=== PATIENT | male | born 1955 | race Caucasian/White ===

== ENCOUNTER 2017-03-06 00:01 | Emergency (ER) | payer SELFPAY | END 2017-03-06 01:15 | disposition home or self-care (01) | LOC: BURERS 00:01 | DX: M70.62 Trochanteric bursitis, left hip (principal); M70.61 Trochanteric bursitis, right hip | CPT/HCPCS: 99283 ==

== ENCOUNTER 2022-02-03 18:22 | Emergency (ER) | payer MEDICARE, SELFPAY ==
[2022-02-03] MEDS ORDERED: Boostrix 0.5 ML (Tdap) VIAL ONE (18:47)
[2022-02-03] MEDS ORDERED: Lidocaine 1% w/Epinephrine 1:100K 20 ML VIAL ONE (18:47)
[2022-02-03] MEDS ORDERED: Cephalexin 250 MG CAP ONE (18:47)
[2022-02-03 19:14] LABS: #Basophils 0.1 thou/uL (0.0-0.2); #Eosinphils 0.1 thou/uL (0.0-0.7); #Monocytes 0.5 thou/uL (0.11-0.59); #Neutrophils 1.8 thou/uL (1.40-6.50); %Basophils 1.8 % (0.0-1.0); %Eosinophils 1.5 % (0.0-10.0); %Lymphocytes 29.6 % (21.0-51.0); %Monocytes 14.5 % (0.0-10.0); %Neutrophils 52.6 % (42.0-75.0); Mean Corpuscular HGB CONC 34.5 g/dL (32.0-36.0); Mean Corpuscular Volume 98.7 fL (78.0-98.0); Mean Platelet Volume 7.1 fL (7.4-10.4); Platelet Count 128 thou/uL (130-400); RBC Distribution Width 13.7 % (11.5-14.5); Red Blood Cell (RBC) Count 3.83 mill/uL (4.70-6.10); White Blood Cell (WBC) Count 3.4 thou/uL (4.8-10.8)
[2022-02-03 19:27] LABS: ALT (SGPT) 147 U/L (8-55); AST (SGOT) 190 U/L (5-34); Albumin 3.2 g/dL (3.4-4.8); Alkaline Phosphatase 221 U/L (40-110); Anion Gap 15 mmol/L (10-20); BUN (Urea Nitrogen) 16 mg/dL (8.4-25.7); Bilirubin, Total 1.8 mg/dL (0.2-1.2); Calc. Creatinine Clearance 0 mL/min (70-130); Calcium 8.8 mg/dL (7.8-10.44); Carbon Dioxide 22 mmol/L (23-31); Chloride 109 mmol/L (98-107); Globulin 3.6 g/dL (2.4-3.5); Glucose 114 mg/dL (80-115); Potassium 3.3 mmol/L (3.5-5.1); Protein, Total 6.8 g/dL (5.8-8.1); Sodium 143 mmol/L (136-145)
[2022-02-03] MEDS ORDERED: Bacitracin 1 PK ONE (19:31)
[2022-02-03 20:10] LABS: Anisocytosis SLIGHT = 6-15 cells (100X) (0-5/hpf); Bite Cells SLIGHT = 2-5 cells (100X) (0-1/hpf); MDiff Complete? YES; Platelet Morphology Comment Appears Decreased; Polychromasia SLIGHT = 2-3 cells (100X) (0-2/hpf); Reflex for Review?? YES; Schistocytes SLIGHT = 2-5 cells (100X) (0-1/hpf); Small Platelets SLIGHT; Spherocytes MODERATE= 6-15 cells (100X) (None Seen)
== END 2022-02-03 19:45 | disposition home or self-care (01) ==
LOC: BURERS 18:22
DX: S81.811A Laceration without foreign body, right lower leg, initial encounter (principal); R94.5 Abnormal results of liver function studies; D64.9 Anemia, unspecified; Z23 Encounter for immunization; Z87.891 Personal history of nicotine dependence; W26.8XXA Contact with other sharp object(s), not elsewhere classified, initial encounter
CPT/HCPCS: 12032; 36415; 80053; 83880; 85025; 85060; 90471; 90715

== ENCOUNTER 2022-04-22 22:52 | Emergency (ER) | payer MEDICARE ==
[2022-04-23] MEDS ORDERED: HYDROcodone/Acetaminophen 10/325 mg Tablet ONE (00:06)
[2022-04-23] MEDS ORDERED: AMOXicillin 250 MG CAP ONE ×2 (00:06→00:10)
== END 2022-04-23 00:11 | disposition home or self-care (01) ==
LOC: BURERS 22:52
DX: H66.91 Otitis media, unspecified, right ear (principal); H72.91 Unspecified perforation of tympanic membrane, right ear; Z87.891 Personal history of nicotine dependence

== ENCOUNTER 2022-07-14 17:25 | Emergency (ER) | payer MEDICARE ==
[2022-07-14] MEDS ORDERED: Ketorolac Tromethamine 30 MG/ML VIAL ONE (17:44)
[2022-07-14 18:46] LABS: #Eosinphils 0.1 thou/uL (0.0-0.7); #Lymphocytes 0.9 thou/uL (1.20-3.40); #Monocytes 0.5 thou/uL (0.11-0.59); #Neutrophils 2.3 thou/uL (1.40-6.50); %Eosinophils 2.7 % (0.0-10.0); %Lymphocytes 23.2 % (21.0-51.0); %Monocytes 12.3 % (0.0-10.0); %Neutrophils 60.9 % (42.0-75.0); Hemoglobin 12.2 g/dL (14.0-18.0); Mean Corpuscular HGB CONC 33.6 g/dL (32.0-36.0); Mean Corpuscular Hemoglobin 33.2 pg (27.0-31.0); Mean Corpuscular Volume 98.6 fL (78.0-98.0); Mean Platelet Volume 7.6 fL (7.4-10.4); Platelet Count 125 thou/uL (130-400); RBC Distribution Width 13.4 % (11.5-14.5); Red Blood Cell (RBC) Count 3.69 mill/uL (4.70-6.10); White Blood Cell (WBC) Count 3.7 thou/uL (4.8-10.8)
[2022-07-14 19:03] LABS: ALT (SGPT) 275 U/L (8-55); AST (SGOT) 394 U/L (5-34); Albumin 2.9 g/dL (3.4-4.8); Alkaline Phosphatase 243 U/L (40-110); Anion Gap 10 mmol/L (10-20); BUN (Urea Nitrogen) 14 mg/dL (8.4-25.7); Bilirubin, Total 1.4 mg/dL (0.2-1.2); Calc. Creatinine Clearance 0 mL/min (70-130); Calcium 8.4 mg/dL (7.8-10.44); Carbon Dioxide 23 mmol/L (23-31); Chloride 109 mmol/L (98-107); Estimated GFR 92; Globulin 3.9 g/dL (2.4-3.5); Glucose 101 mg/dL (80-115); Protein, Total 6.8 g/dL (5.8-8.1); Sodium 139 mmol/L (136-145)
[2022-07-14] MEDS ORDERED: Potassium Chloride 20 MEQ TAB ONE (19:17)
[2022-07-14 19:43] LABS: Bilirubin Small (Negative); Blood, Urine Negative (Negative); Clarity Cloudy (Clear); Glucose, Urine (Dipstick) Negative (Negative); Ketone, Urine Negative (Negative); Leukocyte Negative (Negative); Nitrite Negative (Negative); Protein, Urine (Dipstick) Trace mg/dL (Neg-Trace); Urobilinogen 0.2 mg/dL (Less than 2); pH, Urine 5.5 (5.0-9.0)
[2022-07-14 19:44] LABS: Specific Gravity, Urine 1.028 (1.002-1.036)
== END 2022-07-14 20:20 | disposition home or self-care (01) ==
LOC: BURERS 17:25
DX: K76.9 Liver disease, unspecified (principal); Z87.891 Personal history of nicotine dependence
CPT/HCPCS: 74176; 80053; 81003; 83690; 83880; 84484; 85025; 96374; J1885

== ENCOUNTER 2024-06-09 08:04 | Emergency (ER) | payer MEDICARE ==
[2024-06-09 08:52] LABS: Hematocrit 31.6 % (42.0-52.0); Hemoglobin 10.9 g/dL (14.0-18.0); Mean Corpuscular HGB CONC 34.5 g/dL (32.0-36.0); Mean Corpuscular Hemoglobin 31.9 pg (27.0-31.0); Mean Corpuscular Volume 92.3 fl (78.0-98.0); Mean Platelet Volume 6.3 fL (7.4-10.4); Platelet Count 121 10x3/uL (130-400); RBC Distribution Width 12.9 % (11.5-14.5); Red Blood Cell (RBC) Count 3.42 mill/uL (4.70-6.10); White Blood Cell (WBC) Count 1.5 10x3/uL (4.8-10.8)
[2024-06-09 08:55] LABS: ALT (SGPT) 24 U/L (8-55); AST (SGOT) 17 U/L (5-34); Albumin 3.9 g/dL (3.4-4.8); Alkaline Phosphatase 124 U/L (40-110); Anion Gap 15 mmol/L (10-20); BUN (Urea Nitrogen) 34 mg/dL (8.4-25.7); Bilirubin, Total 0.7 mg/dL (0.2-1.2); Calc. Creatinine Clearance 0 mL/min (70-130); Carbon Dioxide 23 mmol/L (23-31); Chloride 107 mmol/L (98-107); Estimated GFR 30; Globulin 3.3 g/dL (2.4-3.5); Glucose 114 mg/dL (80-115); Potassium 4.2 mmol/L (3.5-5.1); Protein, Total 7.2 g/dL (5.8-8.1); Sodium 141 mmol/L (136-145)
[2024-06-09 09:05] LABS: Band 10 % (5-11); Eosinophils 6 % (0-10); Lymphocytes 24 % (21-51); MDiff Complete? YES; Monocytes 16 % (0-10); Neutrophil 44 % (42-75); Platelet Adequacy Comment Appears Decreased; Reflex for Review?? YES
[2024-06-09] MEDS ORDERED: HYDROcodone/Acetaminophen 5/325 mg Tablet ONE (09:14)
== END 2024-06-09 09:25 | disposition home or self-care (01) ==
LOC: BURERS 08:04
DX: S76.912A Strain of unspecified muscles, fascia and tendons at thigh level, left thigh, initial encounter (principal); X58.XXXA Exposure to other specified factors, initial encounter
CPT/HCPCS: 36415; 80053; 85025; 85060; 99283

== ENCOUNTER 2024-08-14 10:24 | Emergency (ER) | payer MEDICARE | END 2024-08-14 10:53 | disposition home or self-care (01) | LOC: BURERS 10:24 | DX: T82.898A Other specified complication of vascular prosthetic devices, implants and grafts, initial encounter (principal); R00.1 Bradycardia, unspecified | CPT/HCPCS: 96374; 99283; J1642 ==

== ENCOUNTER 2024-11-17 07:19 | Emergency (ER) | payer MEDICARE ==
[2024-11-17] MEDS ORDERED: Ipratropium/Albuterol 3 ML NEB ONE (07:54)
== END 2024-11-17 08:26 | disposition home or self-care (01) ==
LOC: BURERS 07:19
DX: J30.9 Allergic rhinitis, unspecified (principal); R09.82 Postnasal drip; R03.0 Elevated blood-pressure reading, without diagnosis of hypertension
CPT/HCPCS: 71046; 94640; J7620